=== PATIENT | male | born 1970 | race Caucasian/White ===

== ENCOUNTER 2020-01-02 23:56 | Observation (INO) | payer OTHER ==
[2020-01-03] MEDS ORDERED: Nitroglycerin 0.4 MG TAB (25 Tab Bottle) PO PRN (01:01)
[2020-01-03] MEDS ORDERED: Calcium Carbonate 500 MG ChewTAB PO PRN (01:05)
[2020-01-03] MEDS ORDERED: Senokot S 8.6-50 MG TAB PO PRN (01:05)
[2020-01-03] MEDS ORDERED: Ondansetron ODT 4 MG TAB PO PRN (01:05)
[2020-01-03] MEDS ORDERED: Acetaminophen 325 MG TAB PO PRN (01:05)
[2020-01-03 01:08] LABS: Troponin I Less than 0.010 ng/mL (< 0.028)
[2020-01-03] MEDS ORDERED: Sodium Chloride 0.9% 1,000 ML IV SCH (01:15)
[2020-01-03] MEDS ORDERED: Dextrose 5% in Water 1,000 ML IV PRN (01:48)
[2020-01-03] MEDS ORDERED: HumaLOG 300 UNITS/3 ML VIAL SC PRN ×2 (01:48)
[2020-01-03] MEDS ORDERED: Dextrose 50% Abboject 50 ML SYRINGE SLOW IVP PRN (01:48)
--- NOTE | 2020-01-03 02:51 | HP ---
PRIMARY CARE PHYSICIAN: None. CHIEF COMPLAINT: Chest pain. HISTORY OF PRESENT ILLNESS: The patient was given 3 sublingual nitroglycerins with resolution of his chest pain. Currently, upon examination, the patient has no chest pain. The patient is a 49-year-old male with past medical history significant for NE in 2009; CAD with one stent in 2009; hypertension; hyperlipidemia; diabetes type 2 , not on any anti-hyperglycemic medications; and obesity, who presents to the ER for the above complaint. The patient reports that acute onset of left-sided chest pain starting at 8 o'clock in the morning yesterday. He describes the pain as sharp and stabbing, intermittent, exacerbated with exertion, and relieved by nothing. He denies any associated heart palpitation, shortness of breath, or lower extremity swelling. He has no history of COPD or asthma. He has no history of DVT or PE. He denies any illicit drug use. He denies any recent fever or chills. He went to the [place] ER, where he had a full cardiac workup. EKG, sinus marco antonio at 50 beats per minute. Initial troponin negative. Chest x-ray negative for any acute process. BUN of 28, creatinine of 1.06. CBC unremarkable. COVID screening was negative. The patient was given a full dose aspirin, and transferred to the [facility]. PAST MEDICAL HISTORY: 1. CAD x1 in 2009. 2. NE in 2009. 3. Hypertension. 4. Hyperlipidemia. 5. Diabetes, type 2, no medications. 6. Obesity. 7. Depression. PAST SURGICAL HISTORY: 1. CAD x1 in 2009. 2. Tonsillectomy. SOCIAL HISTORY: The patient is currently incarcerated in custodial in [place]. He is a former tobacco user, quit 5 years ago. No alcohol or illicit drug use. He ambulates with no assisting devices. FAMILY HISTORY: Contributory for cardiac disease. His father, grandfather, and brother all of MIs. ALLERGIES: SULFA. HOME MEDICATIONS: Unable to reconcile home medications at bedside. REVIEW OF SYSTEMS: All review of systems are negative unless otherwise stated in the HPI. PHYSICAL EXAMINATION: VITAL SIGNS: Temperature 98.2, blood pressure 149/95, pulse 64, respirations 18 , and 98% on room air. Pain scale 0/10. CONSTITUTIONAL: The patient is alert and oriented to person, place, and time. No acute distress. Nontoxic in appearance. HEAD: Atraumatic and normocephalic. EYES: PERRLA. Extraocular muscles intact. ENT: Nares patent bilaterally. Oropharynx clear. Uvula midline. Moist mucous membranes. NECK: Full range of motion. No cervical tenderness. No JVD. No cervical adenopathy. RESPIRATORY: Respirations, even and nonlabored. Clear to auscultation. No rhonchi, wheezes, or rales. CARDIOVASCULAR: S1 and S2 appreciated. Regular rate and rhythm. No murmurs, rubs, or gallops. ABDOMEN: Soft, nontender. Active bowel sounds. No guarding. No rigidity. No rebound. Negative Rovsing sign. Negative Medina sign. No abdominal bruit auscultated. BACK: Full range of motion. No central spinous tenderness. No CVA tenderness. EXTREMITIES: Upper extremities, full range of motion, normal strength, sensation intact, palpable radial pulses. Lower extremities, full range of motion, normal strength, sensation intact, palpable pedal pulses, no swelling. NEUROLOGICAL: The patient is alert and oriented to person, place, and time. No focal deficits. Moving all extremities. Normal gait. PSYCHIATRIC: Normal affect. Alert and oriented to person, place, and time. DIAGNOSTIC AND LABORATORY DATA: EKG was sinus marco antonio, no ST elevations. Initial troponin negative. Chest x-ray negative for any acute process. Sodium 138, potassium 3.8, chloride 106, carbon dioxide 22, BUN 28, creatinine 1.06, glucose 110, lactic acid 1, calcium 8.7, total bilirubin 0.5, AST 17, ALT 28, alkaline phosphatase 81, lipase of 30. COVID negative. WBCs 3.7, hemoglobin 12.6, hematocrit 40, platelets 135. IMPRESSION AND PLAN: 1. Chest pain, rule out acute coronary syndrome. We will admit the patient to the telemetry floor observation status. Expected length of stay less than 2 midnights. The patient presented for acute onset of chest pain relieved by sublingual nitroglycerin. The patient's HEART score is 4, Wells score 0. We will continue to trend troponins. We will check a TSH, BNP, magnesium, fasting lipids, UA, and UDS. We will order a nuc med stress test with echocardiogram. We will continue aspirin and statin. 2. Dehydration. The patient presented with BUN of 28, creatinine of 1.06. We will give light IV fluid hydration. Recheck labs in the a.m. 3. Hypertension. The patient presented with normal blood pressure. We will restart home medications when reconciled by nursing. 4. Hyperlipidemia. We will check a fasting lipid. We will restart the patient' s home dose statin when reconciled by nursing. 5. Diabetes, type 2, controlled. The patient reports that currently does not take any medications for diabetes medicines, because he had significant weight loss. We will perform before meals and at bedtime Accu-Cheks. Will have mild sliding scale. 6. Obesity. 7. Sequential compression devices for deep venous thrombosis prophylaxis. No gastrointestinal prophylaxis. The patient is a full code. 8. Discussed the case with Dr. Leal. Job ID: [id number] [facility]
[2020-01-03 03:36] LABS: #Eosinphils 0.2 thou/uL (0.0-0.7); #Lymphocytes 0.8 thou/uL (1.20-3.40); #Monocytes 0.3 thou/uL (0.11-0.59); #Neutrophils 1.7 thou/uL (1.40-6.50); %Basophils 0.2 % (0.0-1.0); %Eosinophils 5.7 % (0.0-10.0); %Lymphocytes 26.8 % (21.0-51.0); %Monocytes 10.9 % (0.0-10.0); %Neutrophils 56.5 % (42.0-75.0); Hemoglobin 12.8 g/dL (14.0-18.0); Mean Corpuscular HGB CONC 33.4 g/dL (32.0-36.0); Mean Corpuscular Hemoglobin 27.3 pg (27.0-31.0); Mean Corpuscular Volume 81.7 fL (78.0-98.0); Mean Platelet Volume 8.7 fL (7.4-10.4); Platelet Count 122 thou/uL (130-400); RBC Distribution Width 13.7 % (11.5-14.5)
[2020-01-03 03:57] LABS: Anion Gap 12 mmol/L (10-20); BUN (Urea Nitrogen) 26 mg/dL (8.9-20.6); Calc. Creatinine Clearance 0 mL/min (70-130); Calcium 8.5 mg/dL (7.8-10.44); Carbon Dioxide 24 mmol/L (22-29); Cardiac Risk 3.3 (Less than 4.5); Chloride 106 mmol/L (98-107); Cholesterol 129 mg/dl (< 200 Desired); Estimated GFR-MDRD 86; Glucose 88 mg/dL (70-105); HDL Cholesterol 39 mg/dL (>60 Neg Risk); LDL Cholesterol, Calculated 81 mg/dL; Potassium 3.6 mmol/L (3.5-5.1); Sodium 138 mmol/L (136-145); Triglycerides 46 mg/dL (Less than 150)
[2020-01-03 04:02] LABS: Troponin I Less than 0.010 ng/mL (< 0.028)
[2020-01-03 04:35] VITALS: BMI 40.6
[2020-01-03 07:20] LABS: Troponin I Less than 0.010 ng/mL (< 0.028)
[2020-01-03] MEDS ORDERED: Aspirin Chewable 81 MG TAB ONE (09:16)
[2020-01-03] MEDS: Aspirin 81 mg Enteric Coated Tablet PO SCH (09:19)
[2020-01-03 12:01] LABS: Bacteria/HPF None Seen HPF (None Seen); Bilirubin Negative (Negative); Blood, Urine Negative (Negative); Clarity Clear (Clear); Glucose, Urine (Dipstick) Normal (Negative); Ketone, Urine Negative (Negative); Leukocyte Negative Leu/uL (Negative); Nitrite Negative (Negative); Protein, Urine (Dipstick) Negative (Neg-Trace); RBC/HPF 0-3 HPF (0-3); Specific Gravity, Urine 1.011 (1.002-1.036); Squamous Epithelial 0-3 HPF (0-3); Urobilinogen Normal mg/dL (Less than 2); WBC/HPF 0-3 HPF (0-3); pH, Urine 6.5 (5.0-9.0)
[2020-01-03 12:06] LABS: Amphetamine Not Detected (NotDetected); Barbiturates Screen Not Detected (NotDetected); Benzodiazepine Screen Not Detected (NotDetected); Cocaine Metabolite Screen Not Detected (NotDetected); Medtox Control Line Valid? VALID (VALID); Medtox Reader # READER 4; Methadone Not Detected (NotDetected); Methamphetamine Not Detected (NotDetected); Opiate Screen Not Detected (NotDetected); Oxycodone Screen Not Detected (NotDetected); Phencyclidine (PCP) Not Detected (NotDetected); THC/Cannabinoid Screen Not Detected (NotDetected); Tricyclic Screen Not Detected (NotDetected)
[2020-01-03] MEDS ORDERED: SYSTANE 3.5 GM TUBE L EYE PRN (14:17)
--- NOTE | 2020-01-03 14:23 | PDOC.HOSPP ---
- Subjective Encounter Date: 01/03/20 Encounter Time: 14:21 Subjective: Patient states he has not chest pain at present, his only complain is burning/ irritation of his left eye that started while he was down getting a stress test. He denies any blurred/double vision. No headache or pain behind the eye. States it is irritating and slightly watering. Also complains of feeling hungry. He had a sandwich before he was brought up to his room. He tolerated it well without any n/v. States he did experience chest discomfort which is mild while having the stress test. It resolved quickly and has not recurred since. No associated SOB or diaphoresis. Ty any cough/hemoptysis. No other complaints. Of note he has had a stent in the past and last stress test was in 2013. - Objective Vital Signs & Weight: Vital Signs (12 hours) Temp Pulse Resp BP BP BP Pulse Ox 01/03/20 13:30 177/87 H 01/03/20 11:30 97.5 F L 63 16 179/100 H 99 01/03/20 09:55 97.9 F 58 L 18 139/90 97 Weight Weight 308 lb 0.125 oz Result Diagrams: 01/03/20 03:30 01/03/20 03:30 Additional Labs: Accuchecks 01/03/20 01/03/20 11:34 06:25 POC Glucose 95 91 Radiology Reviewed by me: Yes EKG Reviewed by me: Yes Hospitalist ROS - Review of Systems Constitutional: denies: fever, chills, sweats, weakness, malaise, other Eyes: reports: pain (left eye irritation and watering). denies: vision change, conjunctivae inflammation, eyelid inflammation, redness, other ENT: denies: ear pain, ear discharge, nose pain, nose discharge, nose congestion , mouth pain, mouth swelling, throat pain, throat swelling, other Respiratory: denies: cough, dry, shortness of breath, hemoptysis, SOB with excertion, pleuritic pain, sputum, wheezing, other Cardiovascular: reports: chest pain (resolved). denies: palpitations, orthopnea , paroxysmal noc. dyspnea, edema, light headedness, other Gastrointestinal: denies: nausea, vomiting, abdominal pain, diarrhea, constipation, melena, hematochezia, other Musculoskeletal: denies: neck pain, shoulder pain, arm pain, back pain, hand pain, leg pain, foot pain, other Skin: denies: rash, lesions, zehra, bruising, other Neurological: denies: weakness, numbness, incoordination, change in speech, confusion, seizures, other - Medication Medications: Active Medications Generic Name Dose Route Start Last Admin Trade Name Magdy PRN Reason Stop Dose Admin Aspirin 81 mg 01/03/20 09:00 01/03/20 09:19 Ecotrin PO 81 mg DAILY MOUNIKA Administration Sodium Chloride 1,000 mls @ 75 mls/hr 01/03/20 01:15 01/03/20 04:19 Normal Saline 0.9% IV 01/03/20 14:34 1,000 mls .[id number] MOUNIKA Administration Sodium Chloride 10 ml 01/03/20 09:00 01/03/20 08:08 Flush - Normal Saline IVF Not Given Q12HR MOUNIKA - Exam General Appearance: NAD, awake alert Eye: PERRL Eye - other findings: slight watering to left eye, no FB present, no abnormalities ENT: normocephalic atraumatic Neck: supple, symmetric, no lymphadenopathy Heart: RRR, normal peripheral pulses Respiratory: CTAB, no wheezes, no rales, no ronchi, no tachypnea Gastrointestinal: soft, non-tender, non-distended, normal bowel sounds, no guarding, no rigidity Gastrointestinal - other findings: obesity Extremities: no edema Skin: normal turgor, no lesions, no rashes Neurological: cranial nerve grossly intact, normal sensation to touch, no weakness, no focal deficits Musculoskeletal: normal tone, normal strength, no muscle wasting Psychiatric: normal affect, normal behavior, A&O x 3 Hosp A/P (1) Chest pain Code(s): R07.9 - CHEST PAIN, UNSPECIFIED Status: Acute (2) History of coronary artery disease Code(s): Z86.79 - PERSONAL HISTORY OF OTHER DISEASES OF THE CIRCULATORY SYSTEM Status: Chronic (3) Hx of heart artery stent Code(s): Z95.5 - PRESENCE OF CORONARY ANGIOPLASTY IMPLANT AND GRAFT Status: Chronic (4) Irritation of left eye Code(s): H57.89 - OTHER SPECIFIED DISORDERS OF EYE AND ADNEXA Status: Acute (5) Hypertension Code(s): I10 - ESSENTIAL (PRIMARY) HYPERTENSION Status: Chronic (6) Diabetes mellitus Code(s): E11.9 - TYPE 2 DIABETES MELLITUS WITHOUT COMPLICATIONS Status: Chronic (7) Obesity Code(s): E66.9 - OBESITY, UNSPECIFIED Status: Chronic - Plan DVT proph w/SCDs Given recurrent chest pain during first part of stress test, will repeat/trend troponins. Cardiac monitoring. Awaiting second portion of stress test, to be completed tomorrow. Awaiting Echo. Continue gentle hydration. Monitor renal function. Systane ointment to left eye, as per discussion with Pharm D. Eye patch to be applied. If continues to have issues, consider opthal consult. Likely minimal irritation for a lash, no abnormality on exam. Mild watering and reports irritation. No vision changes. Monitor glucose, ISS initiated. Monitor BP. Reconcile home medications as appropriate. CODE STATUS: HAMIL[place]
[2020-01-03] MEDS ORDERED: Calcium Chloride 13.6 MEQ in Sodium Chloride 0.9% 100 ML IVPB SCH (14:45)
[2020-01-03] MEDS ORDERED: Clopidogrel Bisulfate 75 MG TAB PO SCH (14:45)
[2020-01-03] MEDS ORDERED: Amlodipine 5 MG TAB PO SCH (14:45)
[2020-01-03] MEDS ORDERED: Furosemide 40 MG TAB PO SCH (14:45)
[2020-01-03] MEDS: Sodium Chloride 0.9% 1,000 ML IV SCH (15:33)
[2020-01-03] MEDS: Potassium Chloride 20 MEQ TAB PO SCH (16:13)
[2020-01-03] MEDS ORDERED: Regadenoson 0.4 MG/5 ML SYRINGE ONE (16:25)
[2020-01-03] MEDS: Atorvastatin Calcium 40 MG TAB PO SCH (20:23)
[2020-01-03] MEDS: Citalopram 20 MG TAB PO SCH (20:23)
[2020-01-03] MEDS: Terazosin HCl 5 MG CAP PO SCH (20:23)
[2020-01-03] MEDS: Minoxidil 2.5 MG TAB PO SCH (20:23)
[2020-01-03] MEDS: Furosemide 20 MG TAB PO SCH (20:23)
[2020-01-04] MEDS: Sodium Chloride 0.9% 1,000 ML IV SCH ×2 (02:42→22:02)
[2020-01-04 04:57] LABS: #Eosinphils 0.2 thou/uL (0.0-0.7); #Lymphocytes 0.8 thou/uL (1.20-3.40); #Monocytes 0.3 thou/uL (0.11-0.59); #Neutrophils 1.7 thou/uL (1.40-6.50); %Basophils 0.4 % (0.0-1.0); %Eosinophils 5.9 % (0.0-10.0); %Lymphocytes 27.2 % (21.0-51.0); %Monocytes 9.8 % (0.0-10.0); %Neutrophils 56.6 % (42.0-75.0); Hemoglobin 12.7 g/dL (14.0-18.0); Mean Corpuscular HGB CONC 33.7 g/dL (32.0-36.0); Mean Corpuscular Volume 83.1 fL (78.0-98.0); Mean Platelet Volume 8.6 fL (7.4-10.4); Platelet Count 115 thou/uL (130-400); RBC Distribution Width 13.7 % (11.5-14.5); Red Blood Cell (RBC) Count 4.52 mill/uL (4.70-6.10)
[2020-01-04 05:13] LABS: Anion Gap 11 mmol/L (10-20); BUN (Urea Nitrogen) 14 mg/dL (8.9-20.6); Calc. Creatinine Clearance 194 mL/min (70-130); Carbon Dioxide 25 mmol/L (22-29); Chloride 106 mmol/L (98-107); Estimated GFR-MDRD 89; Glucose 97 mg/dL (70-105); Potassium 3.6 mmol/L (3.5-5.1); Sodium 138 mmol/L (136-145)
[2020-01-04] MEDS: Aspirin 81 mg Enteric Coated Tablet PO SCH (08:43)
[2020-01-04] MEDS: Clopidogrel Bisulfate 75 MG TAB PO SCH (08:43)
[2020-01-04] MEDS ORDERED: Furosemide 40 MG TAB PO SCH (09:00)
--- NOTE | 2020-01-04 10:49 | NM ---
NUCLEAR MEDICINE CARDIAC MYOCARDIAL PERFUSION SPECT EJECTION FRACTION STUDY WALL MOTION CINE: DATE: 01/04/2020 HISTORY: 49-year-old male with hypertension, dyslipidemia, and diabetes mellitus, presents with chest pain TECHNIQUE: Number of days: 2 Rest study: Technetium 99m-sestamibi (Cardiolite) dose:32.4 mCi Pharmacologic stress: Lexiscan dose: 0.4 mg Stress study: Technetium 99m-sestamibi (Cardiolite) dose:30.8 mCi FINDINGS: CARDIAC (MYOCARDIAL PERFUSION) SPECT There are small, subtle, faint defects in the anterior wall on the stress images, which are not visua lized on the rest images. EJECTION FRACTION STUDY Left ventricular EF = 57 % WALL MOTION CINE Normal IMPRESSION: Questionable for mild anterior wall reversible ischemia.
[2020-01-04] MEDS: Lisinopril 20 MG TAB PO SCH (11:28)
[2020-01-04] MEDS: Amlodipine 5 MG TAB PO SCH (11:28)
[2020-01-04] MEDS: Minoxidil 2.5 MG TAB PO SCH ×2 (11:29→21:36)
[2020-01-04] MEDS: Potassium Chloride 20 MEQ TAB PO SCH (15:57)
[2020-01-04] MEDS ORDERED: Communication Order-Pharmacy FS SCH (18:00)
--- NOTE | 2020-01-04 18:45 | PDOC.HOSPP ---
- Subjective Encounter Date: 01/04/20 Encounter Time: 17:00 Subjective: pt up in bed no complains - Objective Vital Signs & Weight: Vital Signs (12 hours) Temp Pulse Resp BP Pulse Ox 01/04/20 15:09 97.9 F 74 20 136/80 96 01/04/20 11:18 99.2 F 65 20 149/86 H 95 01/04/20 07:44 98.0 F 63 16 136/80 97 Weight Weight 308 lb 0.125 oz I&O: 01/03/20 01/04/20 01/05/20 06:59 06:59 06:59 Intake Total 2440 1510 Output Total 2725 1325 Balance -285 185 Result Diagrams: 01/04/20 04:30 01/04/20 04:30 Additional Labs: Accuchecks 01/04/20 01/04/20 01/04/20 16:33 11:11 05:58 POC Glucose 106 97 107 01/03/20 21:20 POC Glucose 110 Hospitalist ROS - Review of Systems Respiratory: denies: cough, dry, shortness of breath, hemoptysis, SOB with excertion, pleuritic pain, sputum, wheezing, other Cardiovascular: denies: chest pain, palpitations, orthopnea, paroxysmal noc. dyspnea, edema, light headedness, other Gastrointestinal: denies: nausea, vomiting, abdominal pain, diarrhea, constipation, melena, hematochezia, other - Medication Medications: Active Medications Generic Name Dose Route Start Last Admin Trade Name Demarcusq PRN Reason Stop Dose Admin Amlodipine Besylate 5 mg 01/04/20 09:00 01/04/20 11:28 Norvasc PO 5 mg DAILY MOUNIKA Administration Aspirin 81 mg 01/03/20 09:00 01/04/20 08:43 Ecotrin PO 81 mg DAILY MOUNIKA Administration Atorvastatin Calcium 40 mg 01/03/20 21:00 01/03/20 20:23 Lipitor PO 40 mg HS MOUNIKA Administration Citalopram Hydrobromide 20 mg 01/03/20 21:00 01/03/20 20:23 Celexa PO 20 mg HS MOUNIKA Administration Clopidogrel Bisulfate 75 mg 01/04/20 09:00 01/04/20 08:43 Plavix PO 75 mg DAILY MOUNIKA Administration Furosemide 20 mg 01/03/20 21:00 01/03/20 20:23 Lasix PO 20 mg HS MOUNIKA Administration Sodium Chloride 1,000 mls @ 50 mls/hr 01/03/20 14:45 01/04/20 02:42 Normal Saline 0.9% IV 1,000 mls .Q20H MOUNIKA Administration Isosorbide Mononitrate 60 mg 01/04/20 09:00 01/04/20 11:29 Imdur PO 60 mg DAILY MOUNIKA Administration Lisinopril 40 mg 01/04/20 09:00 01/04/20 11:28 Zestril PO 40 mg DAILY MOUNIKA Administration Mineral Oil/White Petrolatum 0 gm 01/03/20 14:17 01/03/20 15:33 Systane Nighttime Eye Ointment L EYE 0.25 inch Q8H PRN Administration Dry Eyes Minoxidil 2.5 mg 01/03/20 21:00 01/04/20 11:29 Minoxidil PO 2.5 mg BID MOUNIKA Administration Pantoprazole Sodium 40 mg 01/03/20 21:00 01/03/20 20:23 Protonix PO 40 mg HS MOUNIKA Administration Potassium Chloride 20 meq 01/03/20 17:00 01/04/20 15:57 K-Dur PO 20 meq QPM-WM MOUNIKA Administration Sodium Chloride 10 ml 01/03/20 09:00 01/04/20 08:40 Flush - Normal Saline IVF Not Given Q12HR MOUNIKA Terazosin HCl 10 mg 01/03/20 21:00 01/03/20 20:23 Hytrin PO 10 mg HS MOUNIKA Administration - Exam Heart: negative: RRR, no murmur, no gallops, no rubs, normal peripheral pulses, irregular, diminshed peripheral pulses, murmur present, II/IV, III/IV Gastrointestinal: negative: soft, non-tender, non-distended, normal bowel sounds , no palpable masses, no hepatomegaly, no splenomegaly, no bruit, no guarding, no rigidity, tender to palpation, distended, diminished bowl sounds, voluntary guarding Extremities: 1+ LE edema Hosp A/P (1) Chest pain Code(s): R07.9 - CHEST PAIN, UNSPECIFIED Status: Acute (2) Diabetes mellitus Code(s): E11.9 - TYPE 2 DIABETES MELLITUS WITHOUT COMPLICATIONS Status: Chronic (3) Hypertension Code(s): I10 - ESSENTIAL (PRIMARY) HYPERTENSION Status: Chronic (4) Obesity Code(s): E66.9 - OBESITY, UNSPECIFIED Status: Chronic - Plan pt's stress test abnormal. will get cardio to see pt. will continue asa/statin/ bb. pt normally uses cpap but has not been using his cpap in care home due to covid.
--- NOTE | 2020-01-04 19:09 | CON ---
DATE OF CONSULTATION: REASON FOR CONSULTATION: Chest pain, coronary artery disease, abnormal stress test. HISTORY OF PRESENT ILLNESS: Mr. Berger is a 49-year-old gentleman with the above listed problems. The patient has recently been having chest pressure and pain on the left of the midline. He says he has had previous heart attack 10 years ago when he was in [place]. He said a stent was placed in his coronary artery. He says he also has some intermittent sweating and just does not feel well intermittently. He underwent stress testing, which looks like anterior ischemia PAST HISTORY: 1. Coronary artery disease and hypertension. 2. Hyperlipidemia. 3. Diabetes. SURGICAL HISTORY: Previous stent implantation. SOCIAL HISTORY: Currently incarcerated in longterm in [place]. Former tobacco, quit over 5 years ago. FAMILY HISTORY: Father, grandfather, and brother all of myocardial infarction. ALLERGIES: SULFA. MEDICATIONS: At the longterm appeared to be carvedilol and he says minoxidil. REVIEW OF SYSTEMS: Otherwise, negative unless stated in HPI. PHYSICAL EXAMINATION: VITAL SIGNS: This is a 6 feet and 1 inch tall, 308-pound gentleman. Blood pressure 136/80, pulse 74 and regular. LUNGS: Clear. CARDIAC: Normal S1, normal S2. ABDOMEN: Obese and nontender. EXTREMITIES: Warm and dry. No clubbing or cyanosis. There is no edema. Pedal pulses; he has good posterior tibial pulses and good femoral pulses on the right. PERTINENT LABORATORY DATA: White count is 3. COVID test is negative. Creatinine is 0.9. ASSESSMENT: 1. Coronary artery disease. 2. Recent episodes of angina. 3. Abnormal stress test, showing anterior ischemia. PLAN: Proceed to cardiac catheterization tomorrow is the recommendation. Discussed the risks including stroke, heart attack, iodine allergy, loss of blood supply to the leg or the kidney, vessel perforation in the heart, stent thrombosis, stent restenosis. The patient understands and wishes to proceed. Scheduled this for tomorrow. Job ID: [id number] [facility]
[2020-01-04] MEDS: Terazosin HCl 5 MG CAP PO SCH (21:36)
[2020-01-04] MEDS: Carvedilol 25 MG TAB PO SCH (21:37)
[2020-01-04] MEDS: Atorvastatin Calcium 40 MG TAB PO SCH (21:37)
[2020-01-04] MEDS: Furosemide 20 MG TAB PO SCH (21:37)
[2020-01-04] MEDS: Citalopram 20 MG TAB PO SCH (21:37)
[2020-01-05 04:21] LABS: #Eosinphils 0.2 thou/uL (0.0-0.7); #Lymphocytes 0.9 thou/uL (1.20-3.40); #Monocytes 0.3 thou/uL (0.11-0.59); #Neutrophils 1.6 thou/uL (1.40-6.50); %Basophils 0.7 % (0.0-1.0); %Eosinophils 7.6 % (0.0-10.0); %Lymphocytes 28.3 % (21.0-51.0); %Monocytes 9.7 % (0.0-10.0); %Neutrophils 53.8 % (42.0-75.0); Mean Corpuscular Hemoglobin 27.3 pg (27.0-31.0); Mean Corpuscular Volume 82.7 fL (78.0-98.0); Mean Platelet Volume 8.6 fL (7.4-10.4); Platelet Count 119 thou/uL (130-400); RBC Distribution Width 13.4 % (11.5-14.5); Red Blood Cell (RBC) Count 4.77 mill/uL (4.70-6.10)
[2020-01-05 04:36] LABS: Anion Gap 9 mmol/L (10-20); BUN (Urea Nitrogen) 16 mg/dL (8.9-20.6); Calc. Creatinine Clearance 186 mL/min (70-130); Calcium 8.1 mg/dL (7.8-10.44); Carbon Dioxide 26 mmol/L (22-29); Chloride 106 mmol/L (98-107); Estimated GFR-MDRD 84; Glucose 97 mg/dL (70-105); Potassium 3.6 mmol/L (3.5-5.1); Sodium 137 mmol/L (136-145)
[2020-01-05] MEDS: Lisinopril 20 MG TAB PO SCH (05:33)
[2020-01-05] MEDS: Aspirin 81 mg Enteric Coated Tablet PO SCH (05:33)
[2020-01-05] MEDS: Minoxidil 2.5 MG TAB PO SCH ×2 (05:33→18:04)
[2020-01-05] MEDS: Carvedilol 25 MG TAB PO SCH ×2 (05:33→18:04)
[2020-01-05] MEDS: Amlodipine 5 MG TAB PO SCH (05:34)
[2020-01-05] MEDS: Clopidogrel Bisulfate 75 MG TAB PO SCH (05:35)
[2020-01-05] MEDS ORDERED: Iopamidol 370 76% 100 ML VIAL ONE (08:56)
[2020-01-05] MEDS ORDERED: Midazolam HCl 2 mg/2 ml Vial ONE (11:15)
[2020-01-05] MEDS ORDERED: Fentanyl 100 MCG/2 ML VIAL ONE (11:15)
[2020-01-05] MEDS ORDERED: hydrALAZINE 20 MG/ML VIAL ONE (11:45)
[2020-01-05] MEDS ORDERED: Acetaminophen/Codeine 30-300mg Tablet PO PRN ×2 (11:58)
[2020-01-05] MEDS ORDERED: Nitroglycerin 0.4 MG TAB (25 Tab Bottle) SL PRN (11:58)
[2020-01-05] MEDS ORDERED: Sodium Chloride 0.9% 200 ML IV PRN (11:58)
[2020-01-05 17:19] VITALS: BP 146/84; TEMP 97.6
[2020-01-05] MEDS: Potassium Chloride 20 MEQ TAB PO SCH (18:03)
[2020-01-05] MEDS: Terazosin HCl 5 MG CAP PO SCH (18:03)
[2020-01-05] MEDS: Citalopram 20 MG TAB PO SCH (18:03)
[2020-01-05] MEDS: Furosemide 20 MG TAB PO SCH (18:04)
[2020-01-05] MEDS ORDERED: Rosuvastatin 20 MG TAB PO SCH (21:00)
[2020-01-06] MEDS ORDERED: Amlodipine 5 MG TAB PO SCH (09:00)
== END 2020-01-05 18:57 ==
LOC: EEVIPCON 23:56 → ERS 23:56 → ERHOLD 01-03 00:51 → 2NO 01-03 09:48
PROVIDERS: ADMIT Internal Medicine; ATTEND Internal Medicine
PROC: 4A023N7 Measurement of Cardiac Sampling and Pressure, Left Heart, Percutaneous Approach (ICD-10-PCS; principal; 2020-01-05)
PROC: B2011ZZ Plain Radiography of Multiple Coronary Arteries using Low Osmolar Contrast (ICD-10-PCS; 2020-01-05)
DX: R07.9 Chest pain, unspecified (principal); E86.0 Dehydration; I10 Essential (primary) hypertension; E11.9 Type 2 diabetes mellitus without complications; E66.9 Obesity, unspecified; E78.00 Pure hypercholesterolemia, unspecified; I25.2 Old myocardial infarction; I25.10 Atherosclerotic heart disease of native coronary artery without angina pectoris; F32.9 Major depressive disorder, single episode, unspecified; Z20.828 Contact with and (suspected) exposure to other viral communicable diseases; Z68.41 Body mass index [BMI] 40.0-44.9, adult; Z79.899 Other long term (current) drug therapy; Z87.891 Personal history of nicotine dependence; Z88.2 Allergy status to sulfonamides; Z79.82 Long term (current) use of aspirin
CPT/HCPCS: 36415; 36416; 76942; 78452; 80048; 80061; 80306; 81001; 83735; 83880; 84443; 84484; 85025; 93005; 93017; 93306; 93458; 96360; 99152; 99153; A9500; G0378; J0360; J1644; J2250; J2785; J3010; Q9967; U0002